=== PATIENT | male | born 1995 | race Two or more races ===

== ENCOUNTER 2019-12-21 11:21 | Emergency (ER) | payer OTHER ==
[~2019-12-21] VITALS: Ht 170.2 cm; Wt 81.6 kg
[2019-12-21] MEDS ORDERED: WELLBUTRIN (11:31)
[2019-12-21] MEDS ORDERED: TRAZODONE HCL150 MG (11:32)
[2019-12-21] MEDS ORDERED: DEPAKOTE ER250 MG (11:32)
== END 2019-12-21 14:53 | disposition home or self-care (01) ==
LOC: ER 11:21
DX: S60.512A Abrasion of left hand, initial encounter (principal); W45.8XXA Other foreign body or object entering through skin, initial encounter; Y93.89 Activity, other specified; Y92.89 Other specified places as the place of occurrence of the external cause; Y99.8 Other external cause status